=== PATIENT | male | born 1945 | race Caucasian/White ===

== ENCOUNTER 2019-11-26 15:26 | Inpatient (IN) | payer MEDICAID ==
[~2019-11-26] VITALS: Ht 185.4 cm; Wt 61.2 kg
[2019-11-26] MEDS ORDERED: TRAMADOL HCL50 MG ORAL (15:29)
[2019-11-26] MEDS ORDERED: COMBIVENT RESPIM4 GM IH (15:29)
[2019-11-26 15:30] VITALS: BP 156/99
--- NOTE | 2019-11-26 15:30 | NUR ---
ED Nurse Note: Patient TINO RA61 from home c/o SOB since last night and getting worse today. Per EMS Albuterol HHN was given en route. Alert and oriented x4, verbally responsive, ambulatory. Denies fever/ cough. Pt has hx of COPD and is a regular smoker. Droplet isolation observed. Pt placed on internal medicine nurse practitioner. ERMD at bedside.
--- NOTE | 2019-11-26 15:33 | NUR ---
ED Nurse Note: Blood specimen and Covid swab obtained and sent to lab. IV line was inserted prior to arrival.
[2019-11-26] MEDS ORDERED: Solu-MEDROL 125mg Inj IVP ONE (15:45)
--- NOTE | 2019-11-26 16:01 | Diagnostic Imaging Report ---
Indication: Chest pain Technique: One view of the chest Comparison: none Findings: The lungs are hyperinflated. Lungs and pleural spaces are clear. Old healed right rib fractures are noted. The heart size is normal. Bilateral presumed nipple shadows are noted Impression: Hyperinflation consistent with COPD No acute process
[2019-11-26 16:26] LABS: BASOPHILS % (AUTO) 1.5 % (0.0-2.0); EOSINOPHILS % (AUTO) 4.5 % (0.0-3.0); HEMATOCRIT 42.4 % (42.0-52.0); HEMOGLOBIN 13.8 G/DL (14.2-18.0); LYMPHOCYTES % (AUTO) 17.5 % (20.0-45.0); MEAN CORPUSCULAR VOLUME 101 FL (80-99); MONOCYTES % (AUTO) 5.6 % (1.0-10.0); NEUTROPHILS % (AUTO) 70.8 % (45.0-75.0); PLATELET COUNT 261 K/UL (150-450); RED BLOOD COUNT 4.21 M/UL (4.70-6.10); RED CELL DISTRIBUTION WIDTH 13.7 % (11.6-14.8)
[2019-11-26 16:37] LABS: ANION GAP 12 mmol/L (5-15); BLOOD UREA NITROGEN 13 mg/dL (7-18); CALCIUM 8.9 MG/DL (8.5-10.1); CARBON DIOXIDE 28 MMOL/L (21-32); CHLORIDE 105 MMOL/L (98-107); CREATININE 0.8 MG/DL (0.55-1.30); POTASSIUM 4.6 MMOL/L (3.5-5.1); SODIUM 145 MMOL/L (136-145)
[2019-11-26 16:52] LABS: ALANINE AMINOTRANSFERASE 26 U/L (12-78); ALBUMIN 3.3 G/DL (3.4-5.0); ALBUMIN/GLOBULIN RATIO 0.9 (1.0-2.7); ALKALINE PHOSPHATASE 65 U/L (46-116); ASPARTATE AMINO TRANSFERASE 24 U/L (15-37); BILIRUBIN,TOTAL 0.4 MG/DL (0.2-1.0); CKMB 4.7 NG/ML (0.0-3.6); CREATINE KINASE 99 U/L (26-308)
[2019-11-26 17:00] VITALS: BP 122/78
[2019-11-26] MEDS ORDERED: Albuterol 90mcg Inhaler 8gm INH PRN (17:15)
[2019-11-26] MEDS ORDERED: Nitroglycerin Subl 0.4mg tab SL PRN (17:30)
[2019-11-26] MEDS ORDERED: Miralax 17gm pkt ORAL PRN (17:30)
[2019-11-26] MEDS ORDERED: Milk of Magnesia 30ml Ud ORAL PRN (17:30)
[2019-11-26] MEDS ORDERED: Morphine Sulfate 2mg/ml Inj(IV/IM USE ONLY) IVP PRN (17:30)
[2019-11-26] MEDS ORDERED: HydrALAZINE 10mg Tab ORAL PRN (17:30)
[2019-11-26] MEDS ORDERED: DiphenhydrAMINE 25mg Tab ORAL PRN (17:30)
--- NOTE | 2019-11-26 17:41 | NUR ---
ED Nurse Note: Lactic Reflex is collected and sent to lab.
[2019-11-26] MEDS ORDERED: Ipratropium Bromide Inhaler INH PRN (17:45)
[2019-11-26 19:00] VITALS: BP 126/59
--- NOTE | 2019-11-26 19:05 | Emergency Room Report ---
History of Present Illness General Chief Complaint: Dyspnea/Respdistress Source: Patient, EMS Present Illness HPI Patient presents with complaints of shortness of breath Complains of cough reports that he has a history of COPD And he does smoke intermittently and smoked recently Denies any recent contact with covid-19 patient Denies any recent travel denies any pleurisy Patient reports feeling better with breathing treatment in route from paramedics Allergies: Coded Allergies: No Known Allergies (Unverified , 11/26/19) COVID-19 Screening Contact w/high risk pt: No Recent Travel to affected area: No Experienced COVID-19 symptoms?: Yes COVID-19 symptoms experienced: Shortness of Breath Patient History Past Medical History: see triage record Reviewed Nursing Documentation: PMH: Agreed; PSxH: Agreed Nursing Documentation-PMH Past Medical History: No History, Except For Hx COPD: Yes Review of Systems All Other Systems: negative except mentioned in HPI Physical Exam Vital Signs Date Time Temp Pulse Resp B/P (MAP) Pulse Ox O2 Delivery O2 Flow Rate FiO2 11/26/19 15:20 98.4 100 24 156/99 (118) 100 Simple Mask 10.0 Sp02 EP Interpretation: reviewed, normal General Appearance: mild distress - Short of breath Head: normocephalic, atraumatic Eyes: bilateral eye PERRL, bilateral eye EOMI ENT: hearing grossly normal, normal pharynx, TMs + canals normal, uvula midline Neck: full range of motion, supple, no meningismus, no bony tend Respiratory: no respiratory distress, no retraction, no accessory muscle use, wheezing - Bilaterally Cardiovascular #1: normal peripheral pulses, regular rate, rhythm, no edema, no gallop, no JVD, no murmur Gastrointestinal: normal bowel sounds, non tender, soft, no mass, no organomegaly, non-distended, no guarding, no hernia, no pulsatile mass, no rebound Genitourinary: no CVA tenderness Musculoskeletal: normal inspection Neurologic: motor strength/tone normal, [employer] III-XII nml as tested, oriented x3 , sensory intact, responsive Psychiatric: mood/affect normal Skin: no rash Lymphatic: normal inspection, no adenopathy Medical Decision Making Diagnostic Impression: Primary Impression: COPD exacerbation Additional Impressions: Dyspnea URI (upper respiratory infection) ER Course Patient is a fairly complex patient with multiple differential to consideration including but not limited to cardiac cardiopulmonary and vascular emergencies Consideration for COPD exacerbation versus covid-19 infection also entertained Patient x-ray shows COPD findings he did receive MDI inhaler in the emergency room Including steroids and magnesium he continues to do better ABG does show some exacerbation of COPD And patient admitted for further evaluation of covid-19 and inpatient care Labs Test 11/26/19 15:35 11/26/19 15:38 11/26/19 17:40 White Blood Count 11.0 K/UL (4.8-10.8) Red Blood Count 4.21 M/UL (4.70-6.10) Hemoglobin 13.8 G/DL (14.2-18.0) Hematocrit 42.4 % (42.0-52.0) Mean Corpuscular Volume 101 FL (80-99) Mean Corpuscular Hemoglobin 32.6 PG (27.0-31.0) Mean Corpuscular Hemoglobin Concent 32.4 G/DL (32.0-36.0) Red Cell Distribution Width 13.7 % (11.6-14.8) Platelet Count 261 K/UL (150-450) Mean Platelet Volume 10.8 FL (6.5-10.1) Neutrophils (%) (Auto) 70.8 % (45.0-75.0) Lymphocytes (%) (Auto) 17.5 % (20.0-45.0) Monocytes (%) (Auto) 5.6 % (1.0-10.0) Eosinophils (%) (Auto) 4.5 % (0.0-3.0) Basophils (%) (Auto) 1.5 % (0.0-2.0) Sodium Level 145 MMOL/L (136-145) Potassium Level 4.6 MMOL/L (3.5-5.1) Chloride Level 105 MMOL/L (98-107) Carbon Dioxide Level 28 MMOL/L (21-32) Anion Gap 12 mmol/L (5-15) Blood Urea Nitrogen 13 mg/dL (7-18) Creatinine 0.8 MG/DL (0.55-1.30) Estimat Glomerular Filtration Rate > 60 mL/min (>60) Glucose Level 115 MG/DL (74-106) Lactic Acid Level 2.30 mmol/L (0.4-2.0) 2.10 mmol/L (0.66-2.22) Calcium Level 8.9 MG/DL (8.5-10.1) Total Bilirubin 0.4 MG/DL (0.2-1.0) Aspartate Amino Transf (AST/SGOT) 24 U/L (15-37) Alanine Aminotransferase (ALT/SGPT) 26 U/L (12-78) Alkaline Phosphatase 65 U/L (46-116) Total Creatine Kinase 99 U/L (26-308) Creatine Kinase MB 4.7 NG/ML (0.0-3.6) Creatine Kinase MB Relative Index 4.7 Troponin I 0.000 ng/mL (0.000-0.056) Pro-B-Type Natriuretic Peptide 414 pg/mL (0-125) Total Protein 7.1 G/DL (6.4-8.2) Albumin 3.3 G/DL (3.4-5.0) Globulin 3.8 g/dL Albumin/Globulin Ratio 0.9 (1.0-2.7) Lipase 129 U/L (73-393) Arterial Blood pH 7.330 (7.350-7.450) Arterial Blood Partial Pressure CO2 51.4 mmHg (35.0-45.0) Arterial Blood Partial Pressure O2 65.6 mmHg (75.0-100.0) Arterial Blood HCO3 26.5 mmol/L (22.0-26.0) Arterial Blood Oxygen Saturation 92.1 % (95-100) Arterial Blood Base Excess -0.3 (-2-2) Alejandro Test Positive Rhythm Strip Diag. Results EP Interpretation: yes Rate: 78 Rhythm: NSR, no PVC's, no ectopy Chest X-Ray Diagnostic Results Chest X-Ray Diagnostic Results : Chest X-Ray Ordered: Yes # of Views/Limited/Complete: 1 View Indication: Shortness of Breath EP Interpretation: Yes Interpretation: no consolidation, no effusion, no pneumothorax Impression: No acute disease - Hypoinflation consistent with COPD Electronically Signed by: Carole Blanchard DO Last Vital Signs Date Time Temp Pulse Resp B/P (MAP) Pulse Ox O2 Delivery O2 Flow Rate FiO2 11/26/19 17:00 98.4 89 21 122/78 99 Nasal Cannula 2.0 Status: improved Disposition: ADMITTED INPATIENT Condition: Serious Referrals: NOT CHOSEN IPA/,REFERRING (PCP) Carole Blanchard DO Nov 26, 2019 19:05
--- NOTE | 2019-11-26 19:07 | NUR ---
HAND-OFF: Report given to Christopher BLOOM. Endorsed plan of care.
--- NOTE | 2019-11-26 19:15 | NUR ---
ED Nurse Note: received report from Phuc BLOOM. will resume care of patient
--- NOTE | 2019-11-26 20:34 | NUR ---
ED Nurse Note: gave report to aMx BLOOM for 212-2
[2019-11-26 20:35] VITALS: BP 131/66
[2019-11-26] MEDS: Docusate 100mg cap ORAL SCH (21:00)
[2019-11-26] MEDS: Enoxaparin 40mg Inj SUBQ SCH (21:00)
--- NOTE | 2019-11-26 21:00 | NUR ---
TRANSFER TO FLOOR: Patient transferred to [facility] via [facility] in stable condition via transport 19 protocol as ordered, per dr. Lucio. Report given to Jenni BLOOM. Belongings sent with patient.
[2019-11-26 21:15] VITALS: BP 161/69
--- NOTE | 2019-11-26 21:15 | NUR ---
NURSE NOTES: Pt received from Willie, RN alert and oriented x4 with no acute s/s of distress noted. On 2L NC, saturating at 97%. IV site asymptomatic and patent on L hand 20g, saline lock. Skin intact. Belongings with patient upon admission. VS stable, sinus tachycardia on monitor. Pt unable to remember home medications. Bed in lowest position, call light and belongings within reach.
[2019-11-26] MEDS: Ipratropium Bromide Inhaler INH SCH (21:51)
--- NOTE | 2019-11-26 23:28 | Infectious Diseases Prog Note ---
Assessment/Plan Assessment/Plan Full consult to follow: rule out covid19 infection copd rocephin steroids f/u chest x-ray await covid19 testing isolation Subjective Allergies: Coded Allergies: No Known Allergies (Unverified , 11/26/19) Objective Vital Signs Last 24 Hour Vital Signs Date Time Temp Pulse Resp B/P (MAP) Pulse Ox O2 Delivery O2 Flow Rate FiO2 11/26/19 21:46 Nasal Cannula 2.0 11/26/19 21:15 98.1 112 19 161/69 (99) 97 11/26/19 21:00 98.6 77 18 131/66 99 Nasal Cannula 2.0 80 11/26/19 20:35 98.6 80 18 131/66 99 Nasal Cannula 2.0 11/26/19 20:00 113 11/26/19 19:00 98.4 77 18 126/59 99 Nasal Cannula 2.0 11/26/19 17:00 98.4 89 21 122/78 99 Nasal Cannula 2.0 11/26/19 15:30 98.4 100 24 156/99 100 Nasal Cannula 2.0 11/26/19 15:30 100 24 Simple Mask 10.0 11/26/19 15:20 98.4 100 24 156/99 (118) 100 Simple Mask 10.0 Height (Feet): 6 Height (Inches): 1.00 Weight (Pounds): 130 Laboratory Tests Test 11/26/19 15:35 11/26/19 15:38 11/26/19 17:40 White Blood Count 11.0 K/UL (4.8-10.8) H Red Blood Count 4.21 M/UL (4.70-6.10) L Hemoglobin 13.8 G/DL (14.2-18.0) L Hematocrit 42.4 % (42.0-52.0) Mean Corpuscular Volume 101 FL (80-99) H Mean Corpuscular Hemoglobin 32.6 PG (27.0-31.0) H Mean Corpuscular Hemoglobin Concent 32.4 G/DL (32.0-36.0) Red Cell Distribution Width 13.7 % (11.6-14.8) Platelet Count 261 K/UL (150-450) Mean Platelet Volume 10.8 FL (6.5-10.1) H Neutrophils (%) (Auto) 70.8 % (45.0-75.0) Lymphocytes (%) (Auto) 17.5 % (20.0-45.0) L Monocytes (%) (Auto) 5.6 % (1.0-10.0) Eosinophils (%) (Auto) 4.5 % (0.0-3.0) H Basophils (%) (Auto) 1.5 % (0.0-2.0) Sodium Level 145 MMOL/L (136-145) Potassium Level 4.6 MMOL/L (3.5-5.1) Chloride Level 105 MMOL/L (98-107) Carbon Dioxide Level 28 MMOL/L (21-32) Anion Gap 12 mmol/L (5-15) Blood Urea Nitrogen 13 mg/dL (7-18) Creatinine 0.8 MG/DL (0.55-1.30) Estimat Glomerular Filtration Rate > 60 mL/min (>60) Glucose Level 115 MG/DL (74-106) H Lactic Acid Level 2.30 mmol/L (0.4-2.0) H 2.10 mmol/L (0.66-2.22) Calcium Level 8.9 MG/DL (8.5-10.1) Total Bilirubin 0.4 MG/DL (0.2-1.0) Aspartate Amino Transf (AST/SGOT) 24 U/L (15-37) Alanine Aminotransferase (ALT/SGPT) 26 U/L (12-78) Alkaline Phosphatase 65 U/L (46-116) Total Creatine Kinase 99 U/L (26-308) Creatine Kinase MB 4.7 NG/ML (0.0-3.6) H Creatine Kinase MB Relative Index 4.7 Troponin I 0.000 ng/mL (0.000-0.056) Pro-B-Type Natriuretic Peptide 414 pg/mL (0-125) H Total Protein 7.1 G/DL (6.4-8.2) Albumin 3.3 G/DL (3.4-5.0) L Globulin 3.8 g/dL Albumin/Globulin Ratio 0.9 (1.0-2.7) L Lipase 129 U/L (73-393) Arterial Blood pH 7.330 (7.350-7.450) Arterial Blood Partial Pressure CO2 51.4 mmHg (35.0-45.0) H Arterial Blood Partial Pressure O2 65.6 mmHg (75.0-100.0) L Arterial Blood HCO3 26.5 mmol/L (22.0-26.0) H Arterial Blood Oxygen Saturation 92.1 % (95-100) L Arterial Blood Base Excess -0.3 (-2-2) Alejandro Test Positive Current Medications Medications (Trade) Dose Ordered Sig/Duran Route PRN Reason Start Time Stop Time Status Last Admin Dose Admin Acetaminophen (Tylenol) 650 mg Q4H PRN ORAL Mild Pain (Pain Scale 1-3) 11/26/19 17:30 12/26/19 17:29 Acetaminophen (Tylenol) 650 mg Q4H PRN ORAL Temp >100.5 11/26/19 17:30 12/26/19 17:29 Albuterol Sulfate (Proventil MDI) 2 puff Q4H PRN INH Shortness of Breath 11/26/19 17:15 02/24/20 17:14 Bisacodyl (Dulcolax) 10 mg DAILYPRN PRN RECTAL Constipation 11/26/19 17:30 02/24/20 17:29 Dextrose (Dextrose 50%) 25 ml Q30M PRN IV Hypoglycemia 11/26/19 17:30 02/24/20 17:29 Dextrose (Dextrose 50%) 50 ml Q30M PRN IV Hypoglycemia 11/26/19 17:30 02/24/20 17:29 Diphenhydramine HCl (Benadryl) 25 mg Q6H PRN ORAL Itching/Pruritis 11/26/19 17:30 12/26/19 17:29 Docusate Sodium (Colace) 100 mg EVERY 12 HOURS ORAL 11/26/19 21:00 12/26/19 20:59 Enoxaparin Sodium (Lovenox) 40 mg Q24H SUBQ 11/26/19 21:00 02/24/20 20:59 Hydralazine HCl (Apresoline) 10 mg Q6H PRN ORAL sbp>160 11/26/19 17:30 02/24/20 17:29 Ipratropium [place] (Atrovent Inh) 1 puffs Q12HR INH 11/26/19 21:00 12/26/19 20:59 11/26/19 21:51 Ipratropium [place] (Atrovent Inh) 1 puffs Q6H PRN INH sob 11/26/19 17:45 12/26/19 17:44 Magnesium Hydroxide (Mom) 30 ml HSPRN PRN ORAL Constipation 11/26/19 17:30 12/26/19 17:29 Morphine Sulfate (Morphine Sulfate) 1 mg Q6H PRN IVP Severe Pain (Pain Scale 7-10) 11/26/19 17:30 12/03/19 17:29 Nitroglycerin (Ntg) 0.4 mg Q5M PRN SL Prn Chest Pain 11/26/19 17:30 12/26/19 17:29 Polyethylene Glycol (Miralax) 17 gm DAILYPRN PRN ORAL Constipation 11/26/19 17:30 12/26/19 17:29 Cody Bennett MD Nov 26, 2019 23:28
[2019-11-27] VITALS: BP 130/60
[2019-11-27] MEDS: cefTRIAXone 1 GM in D5W 50 ML IVPB SCH ×2 (00:13→23:22)
[2019-11-27 04:00] VITALS: BP 122/78
[2019-11-27 06:39] LABS: BASOPHILS % (AUTO) 0.5 % (0.0-2.0); EOSINOPHILS % (AUTO) 0.1 % (0.0-3.0); HEMATOCRIT 39.4 % (42.0-52.0); HEMOGLOBIN 13.1 G/DL (14.2-18.0); LYMPHOCYTES % (AUTO) 15.3 % (20.0-45.0); MEAN CORPUSCULAR VOLUME 95 FL (80-99); MONOCYTES % (AUTO) 3.7 % (1.0-10.0); NEUTROPHILS % (AUTO) 80.5 % (45.0-75.0); PLATELET COUNT 261 K/UL (150-450); RED BLOOD COUNT 4.16 M/UL (4.70-6.10); RED CELL DISTRIBUTION WIDTH 12.7 % (11.6-14.8); WHITE BLOOD COUNT 6.6 K/UL (4.8-10.8)
--- NOTE | 2019-11-27 07:20 | NUR ---
HAND-OFF: Report given to MERLE Smith.
--- NOTE | 2019-11-27 07:21 | NUR ---
NURSE NOTES: Received patient in bed awake. O2 via NC in place, no SOB or acute distress. IV line intact. HOB elevated. Bed locked in lowest position. Call light within reach. Will continue plan of care.
[2019-11-27 07:25] LABS: ANION GAP 7 mmol/L (5-15); BLOOD UREA NITROGEN 19 mg/dL (7-18); CALCIUM 8.4 MG/DL (8.5-10.1); CARBON DIOXIDE 31 MMOL/L (21-32); CHLORIDE 106 MMOL/L (98-107); CREATININE 0.9 MG/DL (0.55-1.30); POTASSIUM 4.5 MMOL/L (3.5-5.1); SODIUM 144 MMOL/L (136-145)
[2019-11-27 08:00] VITALS: BP 116/64
--- NOTE | 2019-11-27 08:13 | History and Physical ---
History of Present Illness General Reason for Hospitalization: Dyspnea/Respdistress Present Illness HPI 74-year-old male with PMH of COPD who presents with shortness of breath for 7 days. Patient states he was in his usual state of health when he slowly began to note increased S OB. Patient denies any CP, worsening S OB with ambulation. Patient notes usually supplemental O2 will relieve his symptoms or his inhaler. Patient states he on day of arrival he used his inhaler with O2 with no improvement. Patient notes he took cough syrup with produced mucus/white phlegm. Patient denies any F/C, recent contact with positive COVID patients. Patient states he lives at home on his own. Patient denies any MERA, vision changes, CP, N/V, F/C, abdominal pain, dysuria, diarrhea/constipation. In the ED, patient was shown to be in acute respiratory distress, was given magnesium, CXR consistent with COPD. Pt was admitted for further treatment and evaluation. PMH: COPD FH: Reviewed and not pertinent Surgeries: None SH: Current smoker, 4 to 5 cigarettes daily for "several years", denies daily EtOH, lives at home alone Allergies: NKDA Meds: Inhaler Allergies: Coded Allergies: No Known Allergies (Unverified , 11/26/19) Medication History Scheduled PRN Tramadol Hcl* (Ultram*), 50 MG ORAL Q6H PRN for For Pain, (Reported) Miscellaneous Medications Ipratropium/Albuterol Sulfate (Combivent Respimat Inhal [place]), 4 GM IH, ( Reported) Patient History Healthcare decision maker N Resuscitation status Full Code Advanced Directive on File Review of Systems Constitutional: Denies: no symptoms, see HPI, chills, sweats, fever, malaise, weakness, other Eye: Denies: no symptoms, see HPI, eye pain, blurred vision, tearing, double vision, nose pain, nose congestion, acuity changes, discharge, other ENT: Denies: no symptoms, see HPI, ear pain, ear discharge, nose pain, nose congestion, throat pain, throat swelling, mouth pain, hearing loss, nasal discharge, other Cardiovascular: Denies: no symptoms, see HPI, chest pain, edema, palpitations, syncope, PND, other Gastrointestinal: Denies: no symptoms, see HPI, abdominal pain, constipation, diarrhea, nausea, vomiting, melena, hematemesis, other Genitourinary: Denies: no symptoms, see HPI, discharge, dysuria, frequency, hematuria, pain, retention, incontinence, urgency, vag bleed/dc, other Musculoskeletal: Denies: no symptoms, see HPI, back pain, gout, joint pain, joint swelling, muscle pain, muscle stiffness, other Skin: Denies: no symptoms, see HPI, rash, change in color, change in hair/nails , dryness, lesions, other Psychiatric: Denies: no symptoms, see HPI, prior hx, anxiety, depressed feelings, emotional problems, SI, HI, hallucinations, other Neurological: Denies: no symptoms, see HPI, headache, numbness, paresthesia, seizure, tingling, tremors, focal weakness, syncope, dizziness, other Endocrine: Denies: no symptoms, see HPI, excessive sweating, flushing, intolerance to temperature, increased thirst, increased urine, unexplained weight loss, other Physical Exam Physical Exam Narrative General: NAD, A&O x 3 HEENT: NCAT, EOMi, MMM CV: RRR, no murmurs, rubs, or gallops Pulm: mild wheezing in left lung davis otherwise good air movement in lungs bilaterally, no accessory muscle usage or conversational dyspnea GI: Soft, nontender, nondistended, bowel sounds present Ext: No lower extremity edema bilaterally Skin: no rashes lesions or ulcers Msk: Joints symmetrical in upper extremity and lower extremity bilaterally, no joint swelling. Neuro: CN 2-12 grossly intact bilaterally, no focal signs. Last 24 Hour Vital Signs Date Time Temp Pulse Resp B/P (MAP) Pulse Ox O2 Delivery O2 Flow Rate FiO2 11/27/19 04:00 98.1 86 16 122/78 (93) 99 11/27/19 04:00 2.0 11/27/19 04:00 81 11/27/19 00:00 97.0 85 16 130/60 (83) 100 11/27/19 00:00 84 11/27/19 00:00 2.0 11/26/19 21:46 Nasal Cannula 2.0 11/26/19 21:15 98.1 112 19 161/69 (99) 97 11/26/19 21:00 98.6 77 18 131/66 99 Nasal Cannula 2.0 80 11/26/19 20:35 98.6 80 18 131/66 99 Nasal Cannula 2.0 11/26/19 20:00 113 11/26/19 19:00 98.4 77 18 126/59 99 Nasal Cannula 2.0 11/26/19 17:00 98.4 89 21 122/78 99 Nasal Cannula 2.0 11/26/19 15:30 98.4 100 24 156/99 100 Nasal Cannula 2.0 11/26/19 15:30 100 24 Simple Mask 10.0 11/26/19 15:20 98.4 100 24 156/99 (118) 100 Simple Mask 10.0 Intake and Output 11/26/19 11/27/19 19:00 07:00 Intake Total 1200 ml 1250 ml Output Total 600 ml Balance 1200 ml 650 ml Intake Oral 250 ml IV Total 1200 ml 1000 ml Output Urine Total 600 ml Laboratory Tests Test 11/26/19 15:35 11/26/19 15:38 11/26/19 17:40 11/27/19 05:00 White Blood Count 11.0 K/UL (4.8-10.8) H 6.6 K/UL (4.8-10.8) Red Blood Count 4.21 M/UL (4.70-6.10) L 4.16 M/UL (4.70-6.10) L Hemoglobin 13.8 G/DL (14.2-18.0) L 13.1 G/DL (14.2-18.0) L Hematocrit 42.4 % (42.0-52.0) 39.4 % (42.0-52.0) L Mean Corpuscular Volume 101 FL (80-99) H 95 FL (80-99) Mean Corpuscular Hemoglobin 32.6 PG (27.0-31.0) H 31.5 PG (27.0-31.0) H Mean Corpuscular Hemoglobin Concent 32.4 G/DL (32.0-36.0) 33.3 G/DL (32.0-36.0) Red Cell Distribution Width 13.7 % (11.6-14.8) 12.7 % (11.6-14.8) Platelet Count 261 K/UL (150-450) 261 K/UL (150-450) Mean Platelet Volume 10.8 FL (6.5-10.1) H 9.3 FL (6.5-10.1) Neutrophils (%) (Auto) 70.8 % (45.0-75.0) 80.5 % (45.0-75.0) H Lymphocytes (%) (Auto) 17.5 % (20.0-45.0) L 15.3 % (20.0-45.0) L Monocytes (%) (Auto) 5.6 % (1.0-10.0) 3.7 % (1.0-10.0) Eosinophils (%) (Auto) 4.5 % (0.0-3.0) H 0.1 % (0.0-3.0) Basophils (%) (Auto) 1.5 % (0.0-2.0) 0.5 % (0.0-2.0) Sodium Level 145 MMOL/L (136-145) 144 MMOL/L (136-145) Potassium Level 4.6 MMOL/L (3.5-5.1) 4.5 MMOL/L (3.5-5.1) Chloride Level 105 MMOL/L (98-107) 106 MMOL/L (98-107) Carbon Dioxide Level 28 MMOL/L (21-32) 31 MMOL/L (21-32) Anion Gap 12 mmol/L (5-15) 7 mmol/L (5-15) Blood Urea Nitrogen 13 mg/dL (7-18) 19 mg/dL (7-18) H Creatinine 0.8 MG/DL (0.55-1.30) 0.9 MG/DL (0.55-1.30) Estimat Glomerular Filtration Rate > 60 mL/min (>60) > 60 mL/min (>60) Glucose Level 115 MG/DL (74-106) H 152 MG/DL (74-106) H Lactic Acid Level 2.30 mmol/L (0.4-2.0) H 2.10 mmol/L (0.66-2.22) Calcium Level 8.9 MG/DL (8.5-10.1) 8.4 MG/DL (8.5-10.1) L Total Bilirubin 0.4 MG/DL (0.2-1.0) Aspartate Amino Transf (AST/SGOT) 24 U/L (15-37) Alanine Aminotransferase (ALT/SGPT) 26 U/L (12-78) Alkaline Phosphatase 65 U/L (46-116) Total Creatine Kinase 99 U/L (26-308) Creatine Kinase MB 4.7 NG/ML (0.0-3.6) H Creatine Kinase MB Relative Index 4.7 Troponin I 0.000 ng/mL (0.000-0.056) Pro-B-Type Natriuretic Peptide 414 pg/mL (0-125) H Total Protein 7.1 G/DL (6.4-8.2) Albumin 3.3 G/DL (3.4-5.0) L Globulin 3.8 g/dL Albumin/Globulin Ratio 0.9 (1.0-2.7) L Lipase 129 U/L (73-393) Arterial Blood pH 7.330 (7.350-7.450) Arterial Blood Partial Pressure CO2 51.4 mmHg (35.0-45.0) H Arterial Blood Partial Pressure O2 65.6 mmHg (75.0-100.0) L Arterial Blood HCO3 26.5 mmol/L (22.0-26.0) H Arterial Blood Oxygen Saturation 92.1 % (95-100) L Arterial Blood Base Excess -0.3 (-2-2) Alejandro Test Positive Medications Current Medications Medications (Trade) Dose Ordered Sig/Duran Route PRN Reason Start Time Stop Time Status Last Admin Dose Admin Acetaminophen (Tylenol) 650 mg Q4H PRN ORAL Mild Pain (Pain Scale 1-3) 11/26/19 17:30 12/26/19 17:29 Acetaminophen (Tylenol) 650 mg Q4H PRN ORAL Temp >100.5 11/26/19 17:30 12/26/19 17:29 Albuterol Sulfate (Proventil MDI) 2 puff Q4H PRN INH Shortness of Breath 11/26/19 17:15 02/24/20 17:14 Bisacodyl (Dulcolax) 10 mg DAILYPRN PRN RECTAL Constipation 11/26/19 17:30 02/24/20 17:29 Ceftriaxone Sodium 1 gm/ Dextrose 50 ml @ 100 mls/hr Q24H IVPB 11/27/19 00:00 12/04/19 00:00 11/27/19 00:13 Dextrose (Dextrose 50%) 25 ml Q30M PRN IV Hypoglycemia 11/26/19 17:30 02/24/20 17:29 Dextrose (Dextrose 50%) 50 ml Q30M PRN IV Hypoglycemia 11/26/19 17:30 02/24/20 17:29 Diphenhydramine HCl (Benadryl) 25 mg Q6H PRN ORAL Itching/Pruritis 11/26/19 17:30 12/26/19 17:29 Docusate Sodium (Colace) 100 mg EVERY 12 HOURS ORAL 11/26/19 21:00 12/26/19 20:59 Enoxaparin Sodium (Lovenox) 40 mg Q24H SUBQ 11/26/19 21:00 02/24/20 20:59 Hydralazine HCl (Apresoline) 10 mg Q6H PRN ORAL sbp>160 11/26/19 17:30 02/24/20 17:29 Ipratropium [place] (Atrovent Inh) 1 puffs Q12HR INH 11/26/19 21:00 12/26/19 20:59 11/26/19 21:51 Ipratropium [place] (Atrovent Inh) 1 puffs Q6H PRN INH sob 11/26/19 17:45 12/26/19 17:44 Magnesium Hydroxide (Mom) 30 ml HSPRN PRN ORAL Constipation 11/26/19 17:30 12/26/19 17:29 Morphine Sulfate (Morphine Sulfate) 1 mg Q6H PRN IVP Severe Pain (Pain Scale 7-10) 11/26/19 17:30 12/03/19 17:29 Nitroglycerin (Ntg) 0.4 mg Q5M PRN SL Prn Chest Pain 11/26/19 17:30 12/26/19 17:29 Polyethylene Glycol (Miralax) 17 gm DAILYPRN PRN ORAL Constipation 11/26/19 17:30 12/26/19 17:29 Assessment/Plan Assessment/Plan: 74-year-old male with PMH of COPD who presents with shortness of breath for 7 days. In the ED, patient was shown to be in acute respiratory distress, was given magnesium, CXR consistent with COPD. Pt was admitted for further treatment and evaluation. #Acute COPD exacerbation #CAP #Suspect COVID #Lactic acidosis - resolved -admit to tele -COVID isolation/droplet precautions -lactic acidosis likely 2/2 to acute exacerbation of COPD, now resolved -CXR consistent w/COPD -trop 0 x2 -Atrovent scheduled and PRN -steroids -f/u BCx, SCx -f/u COVID PCR -ID consulted, CTX -Pulm consulted, recs appreciated DVT PPX: lovenox Time spent on encounter: 72 mins, >50% on counseling, coordination of care. Discussed case w/ER physician, Pulm, ID, RN. Time of note doesn't reflect time of encounter. Hodan Garcia M.D. Nov 27, 2019 08:13
[2019-11-27] MEDS: Solu-MEDROL 40mg Inj IVP SCH ×2 (08:56→16:41)
[2019-11-27] MEDS: Docusate 100mg cap ORAL SCH ×2 (08:56→23:21)
[2019-11-27] MEDS: Ipratropium Bromide Inhaler INH SCH ×2 (08:57→21:00)
--- NOTE | 2019-11-27 10:57 | NUR ---
RD ASSESSMENT & RECOMMENDATIONS SEE CARE ACTIVITY FOR COMPLETE ASSESSMENT DAILY ESTIMATED NEEDS: Needs based on COPD, underweight/ 59kg 30-35 kcals/kg 1318-5720 total kcals 1-1.5 g protein/kg 59-89 g total protein 25-30 mL/kg 7347-3743 total fluid mLs NUTRITION DIAGNOSIS: Increased kcal/prot intake needs R/T underweight status as evidenced by 71% IBW and low BMI of 17.2 per EMR. CURRENT DIET:REGULAR PO DIET RECOMMENDATIONS: REGULAR diet as tolerated ADDITIONAL RECOMMENDATIONS: * Standing wt for accurate CBW. * Monitor BGs closely on Solumedrol * Monitor for continued good PO intake
[2019-11-27 11:38] VITALS: BP 123/69
--- NOTE | 2019-11-27 12:00 | NUR ---
NURSE NOTES: Patient positive for gram variable rods as per Dang or lab, Dr Norris paged, awaiting callback.
[2019-11-27 16:00] VITALS: BP 145/75
--- NOTE | 2019-11-27 16:06 | NUR ---
CASE MANAGEMENT:REVIEW 74 YR OLD MALE BIBA FROM HOME CC: SOB SI: COPD EXACERBATION. URI 98.4 100 24 156/99 100% ON MASK @10L WBC+11.0 ph-7.33 pco2+51.4 po2-65.6 hco3+26.5 IS: HHN EN ROUTE 1L NS BOLUS IV SOLUMEDROL IV MAG SULFATE CHEST XRAY COVID 19 BLOOD CX : TO TELEMETRY
--- NOTE | 2019-11-27 16:30 | Consultation ---
DATE OF CONSULTATION: 11/27/2019 PULMONARY CONSULTATION CONSULTING PHYSICIAN: Ihsan Lala MD. HISTORY OF PRESENT ILLNESS: This is a 74-year-old male, who was admitted to the hospital with exacerbation of COPD. The patient presented to the emergency room yesterday with complaints of shortness of breath. He is an active smoker. He denied any contact with COVID-19 patients. There is no history of travel. He reported a mild dry cough, but no fevers. The patient was seen and evaluated, admitted to the hospital for subsequent management and care. His initial x-ray of the chest that was obtained in the emergency room has shown completely clear lung davis bilaterally with some crowding of the vessels at both lung bases. There is also marked hyperinflation. There is no parenchymal infiltrate. The patient's initial vital signs also showed borderline low oxygen and he is saturating well on low-flow oxygen. PAST MEDICAL HISTORY: COPD, otherwise no history noted. PAST SURGICAL HISTORY: None. HOME MEDICATIONS: Reviewed and reconciled in chart. REVIEW OF SYSTEMS: Denies any headaches, hematemesis, melena, hematochezia, night sweats, or weight loss. PHYSICAL EXAMINATION: VITAL SIGNS: Most recent vital signs show O2 saturation 96% on 3 L of oxygen, heart rate is 84, respirations are 20, blood pressure 116/60. He is afebrile. GENERAL: Reveals a 74-year-old male. HEENT: Unremarkable. CHEST: Shows diminished breath sounds bilaterally with normal heart sounds. ABDOMEN: Soft. EXTREMITIES: There is no edema. NEUROLOGIC: Nonfocal. LABORATORY DATA: Lab testing shows white count 6.6, hemoglobin 13, otherwise normal CBC and BMP. Troponin negative x2. ABG 7.33, pCO2 51, pO2 65. IMPRESSION: Exacerbation of COPD. DISCUSSION: Admit to the hospital. Agree with the use of oxygen and pulmonary hygiene including breathing treatments. The patient has received steroids and 40 mg IV q.8h. We will follow carefully. Antibiotics per ID. Ihsan Lala M.D. DR: SARAH/SUGEY JOB#: [id number] CC:
--- NOTE | 2019-11-27 17:39 | NUR ---
NURSE NOTES: Called Dr Norris, still awaiting callback for RN to relay microbiology test result.
--- NOTE | 2019-11-27 17:45 | NUR ---
NURSE NOTES: Relayed fram variable rods in blood (one bottle) to Dr Bennett, no new orders. Addendum: 11/27/19 at 1859 by Sarah Duque RN gram*
--- NOTE | 2019-11-27 19:40 | NUR ---
HAND-OFF: Report given to Alma BLOOM. Addendum: 11/27/19 at 1 by Sarah Duque RN HAND-OFF: Report given to Ema BLOOM.
--- NOTE | 2019-11-27 19:45 | NUR ---
NURSE NOTES: Received report from Sarah Higuera RN. Pt in stable condition; will continue monitoring and plan of care.
[2019-11-27 20:00] VITALS: BP 149/78
--- NOTE | 2019-11-27 22:35 | Infectious Diseases Prog Note ---
Assessment/Plan Assessment/Plan Full consult dictated rule out covid19 infection ? cap, uri copd rocephin steroids f/u chest x-ray await covid19 testing isolation blood culture with gram variable rods - likely contaminant - recheck blood cultures will f/u Subjective Constitutional: Denies: fever HEENT: Denies: congestion Respiratory: Denies: shortness of breath Cardiovascular: Denies: chest pain Gastrointestinal/Abdominal: Denies: nausea, vomiting Allergies: Coded Allergies: No Known Allergies (Unverified , 11/26/19) Objective Vital Signs Last 24 Hour Vital Signs Date Time Temp Pulse Resp B/P (MAP) Pulse Ox O2 Delivery O2 Flow Rate FiO2 11/27/19 16:00 98.1 80 20 145/75 (98) 98 11/27/19 16:00 2.0 11/27/19 16:00 89 11/27/19 12:00 92 11/27/19 12:00 2.0 11/27/19 11:38 97.9 75 20 123/69 (87) 100 11/27/19 09:00 Nasal Cannula 2.0 11/27/19 08:00 2.0 11/27/19 08:00 86 11/27/19 08:00 98.1 87 20 116/64 (81) 99 11/27/19 04:00 98.1 86 16 122/78 (93) 99 11/27/19 04:00 2.0 11/27/19 04:00 81 11/27/19 00:00 97.0 85 16 130/60 (83) 100 11/27/19 00:00 84 11/27/19 00:00 2.0 Height (Feet): 6 Height (Inches): 1.00 Weight (Pounds): 130 General Appearance: no acute distress HEENT: normocephalic, atraumatic, anicteric Respiratory/Chest: lungs clear, normal breath sounds Cardiovascular: normal rate, regular rhythm Abdomen: normal bowel sounds, soft, non tender, no organomegaly Microbiology Date/Time Source Procedure Growth Status 11/26/19 15:35 Blood Blood Culture - Preliminary Resulted Laboratory Tests Test 11/27/19 05:00 White Blood Count 6.6 K/UL (4.8-10.8) Red Blood Count 4.16 M/UL (4.70-6.10) L Hemoglobin 13.1 G/DL (14.2-18.0) L Hematocrit 39.4 % (42.0-52.0) L Mean Corpuscular Volume 95 FL (80-99) Mean Corpuscular Hemoglobin 31.5 PG (27.0-31.0) H Mean Corpuscular Hemoglobin Concent 33.3 G/DL (32.0-36.0) Red Cell Distribution Width 12.7 % (11.6-14.8) Platelet Count 261 K/UL (150-450) Mean Platelet Volume 9.3 FL (6.5-10.1) Neutrophils (%) (Auto) 80.5 % (45.0-75.0) H Lymphocytes (%) (Auto) 15.3 % (20.0-45.0) L Monocytes (%) (Auto) 3.7 % (1.0-10.0) Eosinophils (%) (Auto) 0.1 % (0.0-3.0) Basophils (%) (Auto) 0.5 % (0.0-2.0) Sodium Level 144 MMOL/L (136-145) Potassium Level 4.5 MMOL/L (3.5-5.1) Chloride Level 106 MMOL/L (98-107) Carbon Dioxide Level 31 MMOL/L (21-32) Anion Gap 7 mmol/L (5-15) Blood Urea Nitrogen 19 mg/dL (7-18) H Creatinine 0.9 MG/DL (0.55-1.30) Estimat Glomerular Filtration Rate > 60 mL/min (>60) Glucose Level 152 MG/DL (74-106) H Calcium Level 8.4 MG/DL (8.5-10.1) L Troponin I 0.000 ng/mL (0.000-0.056) Current Medications Medications (Trade) Dose Ordered Sig/Duran Route PRN Reason Start Time Stop Time Status Last Admin Dose Admin Acetaminophen (Tylenol) 650 mg Q4H PRN ORAL Mild Pain (Pain Scale 1-3) 11/26/19 17:30 12/26/19 17:29 Acetaminophen (Tylenol) 650 mg Q4H PRN ORAL Temp >100.5 11/26/19 17:30 12/26/19 17:29 Albuterol Sulfate (Proventil MDI) 2 puff Q4H PRN INH Shortness of Breath 11/26/19 17:15 02/24/20 17:14 Bisacodyl (Dulcolax) 10 mg DAILYPRN PRN RECTAL Constipation 11/26/19 17:30 02/24/20 17:29 Ceftriaxone Sodium 1 gm/ Dextrose 50 ml @ 100 mls/hr Q24H IVPB 11/27/19 00:00 12/04/19 00:00 11/27/19 00:13 Dextrose (Dextrose 50%) 25 ml Q30M PRN IV Hypoglycemia 11/26/19 17:30 02/24/20 17:29 Dextrose (Dextrose 50%) 50 ml Q30M PRN IV Hypoglycemia 11/26/19 17:30 02/24/20 17:29 Diphenhydramine HCl (Benadryl) 25 mg Q6H PRN ORAL Itching/Pruritis 11/26/19 17:30 12/26/19 17:29 Docusate Sodium (Colace) 100 mg EVERY 12 HOURS ORAL 11/26/19 21:00 12/26/19 20:59 11/27/19 08:56 Enoxaparin Sodium (Lovenox) 40 mg Q24H SUBQ 11/26/19 21:00 02/24/20 20:59 Hydralazine HCl (Apresoline) 10 mg Q6H PRN ORAL sbp>160 11/26/19 17:30 02/24/20 17:29 Ipratropium Ursa (Atrovent Inh) 1 puffs Q12HR INH 11/26/19 21:00 12/26/19 20:59 11/27/19 08:57 Ipratropium Ursa (Atrovent Inh) 1 puffs Q6H PRN INH sob 11/26/19 17:45 12/26/19 17:44 Magnesium Hydroxide (Mom) 30 ml HSPRN PRN ORAL Constipation 11/26/19 17:30 12/26/19 17:29 Methylprednisolone Sodium Succinate (Solu-MEDROL) 40 mg Q8H IVP 11/27/19 09:00 02/25/20 08:59 11/27/19 16:41 Morphine Sulfate (Morphine Sulfate) 1 mg Q6H PRN IVP Severe Pain (Pain Scale 7-10) 11/26/19 17:30 12/03/19 17:29 Nitroglycerin (Ntg) 0.4 mg Q5M PRN SL Prn Chest Pain 11/26/19 17:30 12/26/19 17:29 Polyethylene Glycol (Miralax) 17 gm DAILYPRN PRN ORAL Constipation 11/26/19 17:30 12/26/19 17:29 Cody Bennett MD Nov 27, 2019 22:35
[2019-11-27] MEDS: Enoxaparin 40mg Inj SUBQ SCH (23:21)
[2019-11-28] VITALS (7 sets, daily range): BP systolic 132–156; BP diastolic 66–98
[2019-11-28] MEDS: Solu-MEDROL 40mg Inj IVP SCH ×2 (01:55→10:02)
--- NOTE | 2019-11-28 02:30 | Consultation ---
DATE OF CONSULTATION: 11/27/2019 INFECTIOUS DISEASE CONSULTATION CONSULTING PHYSICIAN: Cody Bennett MD. ATTENDING PHYSICIAN: Farzana Lucio MD. REFERRING PHYSICIAN: Zelda Garcia MD. REASON FOR CONSULTATION: Possible COVID-19 virus infection, upper respiratory infection, possible community-acquired pneumonia, possible gram-positive bacteremia. CHIEF COMPLAINT: Patient's chief complaint coming in to the hospital is COPD exacerbation. HISTORY OF PRESENT ILLNESS: This is a 74-year-old male who comes with shortness of breath and COPD exacerbation to [facility]. Infectious Disease consultation requested because of concern of COVID-19 virus infection. He is in isolation currently. COVID-19 virus PCR testing is pending. He has upper respiratory infection and COPD exacerbation. He is on steroids. I put him on Rocephin. Patient has gram-variable rods in the blood, likely contaminant. Await results. MAR was noted. Orders were reviewed. Notes and records were reviewed. REVIEW OF SYSTEMS: CONSTITUTIONAL: Main issue was shortness of breath. He has no fevers. Generalized fatigue. No focal weakness. CARDIAC: No chest pain. GASTROINTESTINAL: No nausea, vomiting, or diarrhea. GENITOURINARY: No dysuria or frequency. PULMONARY: He is short of breath and has cough. SKIN: No rash. PAST MEDICAL HISTORY: Patient has a past medical history of COPD. No history diabetes or hypertension. ALLERGIES: No known drug allergies. SOCIAL HISTORY: Positive smoking. No alcohol drug abuse. FAMILY HISTORY: Noncontributory. MEDICATIONS: Upon reviewing the MAR, he is on following medications. He is on methylprednisolone, Rocephin, enoxaparin, docusate, acetaminophen, morphine, bisacodyl, hydralazine, IV fluids, diphenhydramine. Outside medications noted and reconciliated. Antibiotics, Rocephin. PHYSICAL EXAMINATION: VITAL SIGNS: Temperature is 98.1, pulse 80, respiratory rate 20, blood pressure 145/75, saturation 98%. GENERAL: Alert, responsive, oriented x3. HEAD AND NECK: Oral exam, no thrush. Eye exam, no icterus. Normocephalic. Neck is supple. HEART: Regular. No gallop or murmur. ABDOMEN: Soft, nontender. LUNGS: Few bilateral rhonchi. No rales. SKIN: No rash. MUSCULOSKELETAL: No effusion. Legs are without cellulitis. PERIPHERAL VASCULAR: No cyanosis or gangrene. GENITOURINARY: He has no Sagastume. LINE SITES: Without phlebitis. NEUROLOGIC: Intact, nonfocal. LABORATORY DATA: White count 6.6, hemoglobin 13.1. Highest white count is 11.0, which is not significantly elevated. Creatinine 0.9. Blood cultures had 1 bottle of gram-variable rods, likely contaminant. COVID-19 virus infection testing is pending. Chest x-ray showed no acute disease, consistent with hyperinflation and COPD. ASSESSMENT AND PLAN: 1. Patient has likely COPD exacerbation, upper respiratory infection, rule out community-acquired pneumonia. Continue Rocephin. Check followup chest x-ray. Patient is being ruled out for COVID-19 virus infection with shortness of breath, history of COPD. Continue Rocephin. Check followup chest x-ray and laboratories. Await COVID-19 virus testing. Continue methylprednisolone per Pulmonary Medicine for COPD. 2. COPD. 3. No history of diabetes or hypertension. 4. No known allergies. 5. Social history positive for smoking. 6. Family history noncontributory. 7. MAR was noted. 8. Case discussed with RN. 9. Continue treatment per primary consultants. 10. Orders were noted and entered. In regards to the gram-variable rods in the blood is likely contaminant. We will recheck blood cultures. No need to add any other antibiotics. Continue Rocephin for now. Cody Bennett M.D. DR: PRETTY JOB#: [id number] CC:
--- NOTE | 2019-11-28 07:09 | NUR ---
HAND-OFF: Report given to Wayne Moe RN. Pt in stable condtion.
--- NOTE | 2019-11-28 07:45 | General Progress Note ---
Assessment/Plan Assessment/Plan: 74-year-old male with PMH of COPD who presents with shortness of breath for 7 days. In the ED, patient was shown to be in acute respiratory distress, was given magnesium, CXR consistent with COPD. Pt was admitted for further treatment and evaluation. #Acute COPD exacerbation #CAP #Lactic acidosis - resolved #Bacilis bacteremia -cont. in-pt medical care -lactic acidosis likely 2/2 to acute exacerbation of COPD, now resolved -COVID negative, d/c isolation/droplet precautions -CXR consistent w/COPD -Atrovent scheduled and PRN -steroids IV changed to PO -BCx w/GN bacilli, likely contaminant, repeat BCx pending -ID following: CTX -Pulm consulted, recs appreciated dispo: pending repeat bcx, likely d/c home tomorrow w/HH DVT PPX: lovenox Time spent on encounter: 36 mins, >50% on counseling, coordination of care. Discussed case w/ID and RN. Time of note doesn't reflect time of encounter. Subjective Allergies: Coded Allergies: No Known Allergies (Unverified , 11/26/19) Subjective F/u for COPD exacerbation/CAP. COVID negative. BCx 1 of 2 w/bacilli. Pt denies SOB, cough, f/c, CP at this time. States breathing has improved. 12 pt ROS neg except as above Objective Last 24 Hour Vital Signs Date Time Temp Pulse Resp B/P (MAP) Pulse Ox O2 Delivery O2 Flow Rate FiO2 11/28/19 04:00 2.0 11/28/19 04:00 72 11/28/19 03:59 98.0 73 20 147/75 (99) 98 11/28/19 00:00 71 11/28/19 00:00 97.6 71 19 151/74 (99) 98 11/28/19 00:00 2.0 11/27/19 21:00 Nasal Cannula 2.0 11/27/19 20:00 77 11/27/19 20:00 98.1 77 20 149/78 (101) 98 11/27/19 16:00 98.1 80 20 145/75 (98) 98 11/27/19 16:00 2.0 11/27/19 16:00 89 11/27/19 12:00 92 11/27/19 12:00 2.0 11/27/19 11:38 97.9 75 20 123/69 (87) 100 11/27/19 09:00 Nasal Cannula 2.0 11/27/19 08:00 2.0 11/27/19 08:00 86 11/27/19 08:00 98.1 87 20 116/64 (81) 99 Intake and Output 11/27/19 11/28/19 19:00 07:00 Intake Total 730 ml 300 ml Output Total 700 ml Balance 30 ml 300 ml Intake Oral 730 ml 300 ml Output Urine Total 700 ml # Voids 3 # Bowel Movements 1 Height (Feet): 6 Height (Inches): 1.00 Weight (Pounds): 135 Objective General: NAD, A&O x 3 HEENT: NCAT, EOMi, MMM CV: RRR, no murmurs, rubs, or gallops Pulm: Diminished breath sounds otherwise no wheezing/rales appreciated, no accessory muscle usage or conversational dyspnea GI: Soft, nontender, nondistended, bowel sounds present Ext: No lower extremity edema bilaterally Skin: no rashes lesions or ulcers Hodan Garcia M.D. Nov 28, 2019 07:45
[2019-11-28 09:01] LABS: HEMATOCRIT 42.2 % (42.0-52.0); MEAN CORPUSCULAR VOLUME 96 FL (80-99); PLATELET COUNT 262 K/UL (150-450); RED BLOOD COUNT 4.41 M/UL (4.70-6.10); RED CELL DISTRIBUTION WIDTH 12.8 % (11.6-14.8); WHITE BLOOD COUNT 15.9 K/UL (4.8-10.8)
[2019-11-28 09:19] LABS: ANION GAP 7 mmol/L (5-15); BLOOD UREA NITROGEN 16 mg/dL (7-18); CALCIUM 9.3 MG/DL (8.5-10.1); CARBON DIOXIDE 33 MMOL/L (21-32); CHLORIDE 104 MMOL/L (98-107); CREATININE 0.8 MG/DL (0.55-1.30); POTASSIUM 4.3 MMOL/L (3.5-5.1); SODIUM 143 MMOL/L (136-145)
[2019-11-28] MEDS: Docusate 100mg cap ORAL SCH ×2 (10:02→20:38)
--- NOTE | 2019-11-28 10:03 | NUR ---
CASE MANAGEMENT:REVIEW' 11/28/19 SI: COPD EXACERBATION. RESPIRATORY DISTRESS 97.7 69 20 140/68 99% ON 2L/NC WBC+15.9 CO2+33 IS: IV SOLUMEDROL Q8HRS IV ROCEPHIN Q24 LOVENOX SQ Q24 ATROVENT INH Q12 : TELEMETRY STATUS DCP: FROM HOME
[2019-11-28] MEDS: Ipratropium Bromide Inhaler INH SCH ×2 (10:04→21:00)
--- NOTE | 2019-11-28 10:22 | Pulmonology Progress Note ---
Assessment/Plan Assessment/Plan IMPRESSION: Exacerbation of COPD. DISCUSSION: Continue oxygen and pulmonary hygiene including breathing treatments. Continue steroids. I will follow carefully. Antibiotics per ID. Ihsan Lala M.D. Subjective Interval Events: COVID 19 pcr negative Constitutional: Reports: no symptoms HEENT: Repors: no symptoms Respiratory: Reports: no symptoms Cardiovascular: Reports: no symptoms Gastrointestinal/Abdominal: Reports: no symptoms, nausea, vomiting Allergies: Coded Allergies: No Known Allergies (Unverified , 11/26/19) Objective Last 24 Hour Vital Signs Date Time Temp Pulse Resp B/P (MAP) Pulse Ox O2 Delivery O2 Flow Rate FiO2 11/28/19 09:00 Nasal Cannula 2.0 Nasal Cannula 2.0 11/28/19 08:00 97.7 69 20 140/69 (92) 99 11/28/19 08:00 2.0 11/28/19 04:00 2.0 11/28/19 04:00 72 11/28/19 03:59 98.0 73 20 147/75 (99) 98 11/28/19 00:00 71 11/28/19 00:00 97.6 71 19 151/74 (99) 98 11/28/19 00:00 2.0 11/27/19 21:00 Nasal Cannula 2.0 11/27/19 20:00 77 11/27/19 20:00 98.1 77 20 149/78 (101) 98 11/27/19 16:00 98.1 80 20 145/75 (98) 98 11/27/19 16:00 2.0 11/27/19 16:00 89 11/27/19 12:00 92 11/27/19 12:00 2.0 11/27/19 11:38 97.9 75 20 123/69 (87) 100 Intake and Output 11/27/19 11/28/19 19:00 07:00 Intake Total 730 ml 300 ml Output Total 700 ml Balance 30 ml 300 ml Intake Oral 730 ml 300 ml Output Urine Total 700 ml # Voids 3 # Bowel Movements 1 General Appearance: no acute distress HEENT: normocephalic, atraumatic, anicteric Respiratory/Chest: chest wall non-tender, lungs clear Cardiovascular: normal peripheral pulses Abdomen: normal bowel sounds, soft, non tender, no organomegaly Extremities: no cyanosis Microbiology Date/Time Source Procedure Growth Status 11/26/19 15:50 Blood Blood Culture - Preliminary NO GROWTH AFTER 24 HOURS Resulted 11/26/19 15:35 Blood Blood Culture - Final Bacillus Sp Not B. Anthracis Complete 11/26/19 15:35 Nasopharynx Coronavirus COVID-19 PCR ([facility]) - Final Complete Laboratory Tests 11/28/19 08:10: White Blood Count 15.9#H, Red Blood Count 4.41L, Hemoglobin 14.0L, Hematocrit 42.2, Mean Corpuscular Volume 96, Mean Corpuscular Hemoglobin 31.8H, Mean Corpuscular Hemoglobin Concent 33.2, Red Cell Distribution Width 12.8, Platelet Count 262, Mean Platelet Volume 10.1, Neutrophils (%) (Auto) , Lymphocytes (%) ( Auto) , Monocytes (%) (Auto) , Eosinophils (%) (Auto) , Basophils (%) (Auto) , Neutrophils % (Manual) [Pending], Lymphocytes % (Manual) [Pending], Platelet Estimate [Pending], Platelet Morphology [Pending], Sodium Level 143, Potassium Level 4.3, Chloride Level 104, Carbon Dioxide Level 33H, Anion Gap 7, Blood Urea Nitrogen 16, Creatinine 0.8, Estimat Glomerular Filtration Rate > 60, Glucose Level 125H, Calcium Level 9.3 Current Medications Medications (Trade) Dose Ordered Sig/Duran Route PRN Reason Start Time Stop Time Status Last Admin Dose Admin Acetaminophen (Tylenol) 650 mg Q4H PRN ORAL Mild Pain (Pain Scale 1-3) 11/26/19 17:30 12/26/19 17:29 Acetaminophen (Tylenol) 650 mg Q4H PRN ORAL Temp >100.5 11/26/19 17:30 12/26/19 17:29 Albuterol Sulfate (Proventil MDI) 2 puff Q4H PRN INH Shortness of Breath 11/26/19 17:15 02/24/20 17:14 Bisacodyl (Dulcolax) 10 mg DAILYPRN PRN RECTAL Constipation 11/26/19 17:30 02/24/20 17:29 Ceftriaxone Sodium 1 gm/ Dextrose 50 ml @ 100 mls/hr Q24H IVPB 11/27/19 00:00 12/04/19 00:00 11/27/19 23:22 Dextrose (Dextrose 50%) 25 ml Q30M PRN IV Hypoglycemia 11/26/19 17:30 02/24/20 17:29 Dextrose (Dextrose 50%) 50 ml Q30M PRN IV Hypoglycemia 11/26/19 17:30 02/24/20 17:29 Diphenhydramine HCl (Benadryl) 25 mg Q6H PRN ORAL Itching/Pruritis 11/26/19 17:30 12/26/19 17:29 Docusate Sodium (Colace) 100 mg EVERY 12 HOURS ORAL 11/26/19 21:00 12/26/19 20:59 11/28/19 10:02 Enoxaparin Sodium (Lovenox) 40 mg Q24H SUBQ 11/26/19 21:00 02/24/20 20:59 11/27/19 23:21 Hydralazine HCl (Apresoline) 10 mg Q6H PRN ORAL sbp>160 11/26/19 17:30 02/24/20 17:29 Ipratropium Swan (Atrovent Inh) 1 puffs Q12HR INH 11/26/19 21:00 12/26/19 20:59 11/28/19 10:04 Ipratropium Swan (Atrovent Inh) 1 puffs Q6H PRN INH sob 11/26/19 17:45 12/26/19 17:44 Magnesium Hydroxide (Mom) 30 ml HSPRN PRN ORAL Constipation 11/26/19 17:30 12/26/19 17:29 Methylprednisolone Sodium Succinate (Solu-MEDROL) 40 mg Q8H IVP 11/27/19 09:00 02/25/20 08:59 11/28/19 10:02 Morphine Sulfate (Morphine Sulfate) 1 mg Q6H PRN IVP Severe Pain (Pain Scale 7-10) 11/26/19 17:30 12/03/19 17:29 Nitroglycerin (Ntg) 0.4 mg Q5M PRN SL Prn Chest Pain 11/26/19 17:30 12/26/19 17:29 Polyethylene Glycol (Miralax) 17 gm DAILYPRN PRN ORAL Constipation 11/26/19 17:30 12/26/19 17:29 Ihsan Lala MD Nov 28, 2019 10:22
--- NOTE | 2019-11-28 11:51 | Diagnostic Imaging Report ---
Indication: Cough, chest pain Technique: XRAY Chest 1v Comparison: 11/26/2019 Findings: The ventilation with flattening of the diaphragms compatible with COPD again noted. No focal airspace consolidation is identified. No radiographically appreciable pleural effusion or pneumothorax. No evidence to suggest pulmonary edema. There are healed rib fractures. Mild scoliosis is noted. Heart size and mediastinal contours are stable. Atherosclerotic vascular calcifications again noted. Interposition of portions of the transverse colon underneath the left hemidiaphragm again noted. Impression: No significant interval change compared to the prior exam. COPD changes. No focal airspace consolidation.
--- NOTE | 2019-11-28 14:17 | NUR ---
RADIOLOGY DEPT., CHEST X-RAY DONE.-P.DYE
--- NOTE | 2019-11-28 14:20 | NUR ---
NURSE NOTES: Patient arrived on unit. AOx4 Stable. Denies pain or SOB. Patient's skin is c/d/i. Patient oriented to room, call light, and unit. patient instructed to use call light for assistance, verbalized understanding. Patient is in bed in locked and lowest position with call light within reach. All safety measures provided. WIll continue to monitor.
[2019-11-28] MEDS ORDERED: Miralax 17gm pkt ORAL PRN (15:00)
[2019-11-28] MEDS ORDERED: HydrALAZINE 10mg Tab ORAL PRN (15:00)
[2019-11-28] MEDS ORDERED: Ipratropium Bromide Inhaler INH PRN (15:00)
[2019-11-28] MEDS ORDERED: Morphine Sulfate 2mg/ml Inj(IV/IM USE ONLY) IVP PRN (15:00)
[2019-11-28] MEDS ORDERED: Albuterol 90mcg Inhaler 8gm INH PRN (15:00)
[2019-11-28] MEDS ORDERED: DiphenhydrAMINE 25mg Tab ORAL PRN (15:00)
[2019-11-28] MEDS ORDERED: Nitroglycerin Subl 0.4mg tab SL PRN (15:00)
--- NOTE | 2019-11-28 15:16 | NUR ---
DISCHARGE PLANNING PATIENT IS FROM HOME AND COVID 19 NEGATIVE DISCHARGE PLAN DISCUSSED WITH DR CASTANON THIS MORNING PER PATIENT NOT READY FOR DISCHARGE BUT READY FOR LOWER LEVEL OF CARE DOWNGRADE TO MED/SURG Addendum: 11/28/19 at 1618 by KAILASH BOJORQUEZ LVN LVN FAXED CLINICALS TO [facility] T: [phone] F: [phone]
--- NOTE | 2019-11-28 19:12 | NUR ---
HAND-OFF: Report given to Amador BLOOM. Patient is stable.
--- NOTE | 2019-11-28 19:17 | NUR ---
NURSE NOTES: Pt. received from MERLE Wilcox. Pt. AAOx4, on room air, out of bed in chair watching television. Breathing is even and unlabored, no complaints of pain at this time. IV left hand 20 g noted, saline locked. Bed is low and locked, side rails x2 up, and call light is in reach. Will continue to monitor.
[2019-11-28] MEDS ORDERED: Enoxaparin 40mg Inj SUBQ SCH (21:00)
[2019-11-28] MEDS ORDERED: Milk of Magnesia 30ml Ud ORAL PRN (21:00)
[2019-11-29] VITALS: BP 144/72
[2019-11-29] MEDS ORDERED: cefTRIAXone 1 GM in D5W 50 ML IVPB SCH ×2
[2019-11-29 04:00] VITALS: BP 164/78
[2019-11-29 04:45] VITALS: BP 144/73
[2019-11-29 06:54] LABS: ANION GAP 3 mmol/L (5-15); BLOOD UREA NITROGEN 18 mg/dL (7-18); CALCIUM 8.2 MG/DL (8.5-10.1); CARBON DIOXIDE 34 MMOL/L (21-32); CHLORIDE 106 MMOL/L (98-107); CREATININE 0.7 MG/DL (0.55-1.30); POTASSIUM 4.1 MMOL/L (3.5-5.1); SODIUM 143 MMOL/L (136-145)
[2019-11-29 07:16] LABS: BASOPHILS % (AUTO) 1.2 % (0.0-2.0); EOSINOPHILS % (AUTO) 0.3 % (0.0-3.0); HEMATOCRIT 37.3 % (42.0-52.0); HEMOGLOBIN 12.7 G/DL (14.2-18.0); LYMPHOCYTES % (AUTO) 30.8 % (20.0-45.0); MEAN CORPUSCULAR VOLUME 94 FL (80-99); MONOCYTES % (AUTO) 10.8 % (1.0-10.0); NEUTROPHILS % (AUTO) 56.9 % (45.0-75.0); PLATELET COUNT 216 K/UL (150-450); RED BLOOD COUNT 3.95 M/UL (4.70-6.10); RED CELL DISTRIBUTION WIDTH 12.8 % (11.6-14.8); WHITE BLOOD COUNT 11.9 K/UL (4.8-10.8)
--- NOTE | 2019-11-29 07:30 | NUR ---
NURSE NOTES: Patient is in bed asleep. Stable. no visible signs of distress noted. Patient is in bed in locked and lowest position with call light within reach. All safety measures provided. Will continue to monitor.
--- NOTE | 2019-11-29 07:31 | Discharge Summary ---
Discharge Summary Hospital Course Date of Admission Nov 26, 2019 at 16:18 Date of Discharge Admitting Diagnosis copd exacerbation HPI Varun Oliva is a 74 year old male who was admitted on Nov 26, 2019 at 16 :18 for Chronic Obstructive Pulmonary Disease Exacerbation Hospital Course 74-year-old male with PMH of COPD who presents with shortness of breath for 7 days. In the ED, patient was shown to be in acute respiratory distress, was given magnesium, CXR consistent with COPD. Pt was admitted for further treatment and evaluation. COVID was negative. Pt improved with atrovent and steroids. BCx w/GN bacilli, likely contaminant, repeat BCx negative x2. Pt noted to have BP elevated, started on amlodipine. ID and pulm on board, stated pt stable for d/c home w/home health. Pt to be d/c home w/ Medrol Dosepak, Levaquin 750 mg PO q daily x3 days, and amlodipine 5 mg PO daily. Pt instructed to f/u w/PCP as o/p. #Acute COPD exacerbation #CAP #Lactic acidosis - resolved D/c planning >30 mins. Discharge Medications New Medications: Levofloxacin* (Levaquin*) 750 Mg Tablet 750 MG ORAL DAILY for 3 Days, #3 TAB Methylprednisolone (Methylprednisolone*) 4MG Dspk 4 MG ORAL DIRECTED for 6 Days, #21 EA 0 Refills Day 1: Two tablets before breakfast, one after lunch, one after dinner, and two at bedtime. If started late in the day, take all six tablets at once or divide into two or three doses, unless otherwise directed by prescriber. Day 2: One tablet before breakfast, one after lunch, one after dinner, and two at bedtime Day 3: One tablet before breakfast, one after lunch, one after dinner, and one at bedtime Day 4: One tablet before breakfast, one after lunch, and one at bedtime Day 5: One tablet before breakfast and one at bedtime Day 6: One tablet before breakfast Amlodipine Besylate (Norvasc) 5 Mg Tablet 5 MG ORAL DAILY for 30 Days, #30 TAB 1 Refill Continued Medications: Ipratropium/Albuterol Sulfate (Combivent Respimat Inhal [place]) 4 Gm Mist.inhal 4 GM IH for , GM (This prescription has been renewed) Tramadol Hcl* (Ultram*) 50 Mg Tablet 50 MG ORAL Q6H PRN for For Pain, #12 TAB 0 Refills (This prescription has been renewed) Discharge Condition Upon Discharge: stable Discharge Vital Signs Last Vital Signs Date Time Temp Pulse Resp B/P (MAP) Pulse Ox O2 Delivery O2 Flow Rate FiO2 11/29/19 04:45 144/73 (96) 11/29/19 04:00 97.2 61 18 97 11/28/19 21:00 Nasal Cannula 2.0 Nasal Cannula 2.0 Discharge Disposition Patient was discharged to home w/home health. Hodan Garcia M.D. Nov 29, 2019 07:31
--- NOTE | 2019-11-29 07:35 | NUR ---
HAND-OFF: Report given to MERLE Wilcox.
[2019-11-29] MEDS ORDERED: MEDROL DOSEPAK4 MG ORAL (07:50)
[2019-11-29] MEDS ORDERED: LEVAQUIN750 MG ORAL (07:50)
[2019-11-29] MEDS ORDERED: NORVASC5 MG ORAL (07:54)
[2019-11-29 08:00] VITALS: BP 163/77
[2019-11-29] MEDS: Docusate 100mg cap ORAL SCH (08:31)
[2019-11-29] MEDS: Ipratropium Bromide Inhaler INH SCH (09:00)
[2019-11-29 12:00] VITALS: BP 147/98
--- NOTE | 2019-11-29 12:10 | Pulmonology Progress Note ---
Assessment/Plan Assessment/Plan IMPRESSION: Exacerbation of COPD. DISCUSSION: Continue pulmonary hygiene including breathing treatments. Continue steroids. OK to switch to PO steroid taper DC planning November dc O2 Ihsan Lala M.D. Subjective Interval Events: COVID 19 pcr negative Constitutional: Reports: no symptoms HEENT: Repors: no symptoms Respiratory: Reports: no symptoms Cardiovascular: Reports: no symptoms Gastrointestinal/Abdominal: Reports: no symptoms, nausea, vomiting Allergies: Coded Allergies: No Known Allergies (Unverified , 11/26/19) Objective Last 24 Hour Vital Signs Date Time Temp Pulse Resp B/P (MAP) Pulse Ox O2 Delivery O2 Flow Rate FiO2 11/29/19 09:00 Nasal Cannula 2.0 Nasal Cannula 2.0 11/29/19 08:31 83 163/77 11/29/19 08:00 97.8 83 20 163/77 (105) 98 11/29/19 04:45 144/73 (96) 11/29/19 04:00 97.2 61 18 164/78 (106) 97 11/29/19 03:46 164/78 11/29/19 00:00 97.3 67 16 144/72 (96) 99 11/28/19 21:00 Nasal Cannula 2.0 Nasal Cannula 2.0 11/28/19 20:00 97.3 93 16 156/73 (100) 93 11/28/19 16:00 97.2 75 20 144/72 (96) 98 11/28/19 14:20 98.1 101 16 135/98 (110) 95 Intake and Output 11/28/19 11/29/19 19:00 07:00 Intake Total 480 ml 350 ml Output Total 1200 ml Balance -720 ml 350 ml Intake Oral 480 ml 300 ml IV Total 50 ml Output Urine Total 1200 ml # Voids 1 General Appearance: no acute distress HEENT: normocephalic, atraumatic, anicteric Respiratory/Chest: chest wall non-tender, lungs clear Cardiovascular: normal peripheral pulses Abdomen: normal bowel sounds, soft, non tender, no organomegaly Extremities: no cyanosis Microbiology Date/Time Source Procedure Growth Status 11/26/19 15:50 Blood Blood Culture - Preliminary NO GROWTH AFTER 48 HOURS Resulted 11/26/19 15:35 Blood Blood Culture - Final Bacillus Sp Not B. Anthracis Complete 11/26/19 15:35 Nasopharynx Coronavirus COVID-19 PCR ([facility]) - Final Complete Laboratory Tests 11/29/19 05:40: White Blood Count 11.9H, Red Blood Count 3.95L, Hemoglobin 12.7L, Hematocrit 37.3L, Mean Corpuscular Volume 94, Mean Corpuscular Hemoglobin 32.1H, Mean Corpuscular Hemoglobin Concent 34.0, Red Cell Distribution Width 12.8, Platelet Count 216, Mean Platelet Volume 9.9, Neutrophils (%) (Auto) 56.9, Lymphocytes (% ) (Auto) 30.8, Monocytes (%) (Auto) 10.8H, Eosinophils (%) (Auto) 0.3, Basophils (%) (Auto) 1.2, Sodium Level 143, Potassium Level 4.1, Chloride Level 106, Carbon Dioxide Level 34H, Anion Gap 3L, Blood Urea Nitrogen 18, Creatinine 0.7, Estimat Glomerular Filtration Rate > 60, Glucose Level 80, Calcium Level 8.2L Current Medications Medications (Trade) Dose Ordered Sig/Duran Route PRN Reason Start Time Stop Time Status Last Admin Dose Admin Acetaminophen (Tylenol) 650 mg Q4H PRN ORAL Mild Pain (Pain Scale 1-3) 11/28/19 15:00 12/26/19 14:59 Acetaminophen (Tylenol) 650 mg Q4H PRN ORAL Temp >100.5 11/28/19 15:00 12/26/19 14:59 Albuterol Sulfate (Proventil MDI) 2 puff Q4H PRN INH Shortness of Breath 11/28/19 15:00 02/24/20 14:59 Amlodipine Besylate (Norvasc) 5 mg DAILY ORAL 11/29/19 09:00 12/29/19 08:59 11/29/19 08:31 Bisacodyl (Dulcolax) 10 mg DAILYPRN PRN RECTAL Constipation 11/28/19 15:00 02/24/20 14:59 Ceftriaxone Sodium 1 gm/ Dextrose 50 ml @ 100 mls/hr Q24H IVPB 11/29/19 00:00 12/04/19 00:00 11/29/19 00:17 Dextrose (Dextrose 50%) 25 ml Q30M PRN IV Hypoglycemia 11/28/19 15:00 02/24/20 14:59 Dextrose (Dextrose 50%) 50 ml Q30M PRN IV Hypoglycemia 11/28/19 15:00 02/24/20 14:59 Diphenhydramine HCl (Benadryl) 25 mg Q6H PRN ORAL Itching/Pruritis 11/28/19 15:00 12/26/19 14:59 Docusate Sodium (Colace) 100 mg EVERY 12 HOURS ORAL 11/28/19 21:00 12/26/19 20:59 11/29/19 08:31 Enoxaparin Sodium (Lovenox) 40 mg Q24H SUBQ 11/28/19 21:00 02/24/20 20:59 11/28/19 20:41 Hydralazine HCl (Apresoline) 10 mg Q6H PRN ORAL sbp>160 mmHg 11/28/19 15:00 02/24/20 14:59 11/29/19 03:46 Ipratropium [place] (Atrovent Inh) 1 puffs Q12HR INH 11/28/19 21:00 12/26/19 20:59 Ipratropium [place] (Atrovent Inh) 1 puffs Q6H PRN INH Shortness of Breath 11/28/19 15:00 12/26/19 14:59 Magnesium Hydroxide (Mom) 30 ml HSPRN PRN ORAL Constipation 11/28/19 21:00 12/26/19 20:59 Morphine Sulfate (Morphine Sulfate) 1 mg Q6H PRN IVP Severe Pain (Pain Scale 7-10) 11/28/19 15:00 12/03/19 14:59 Nitroglycerin (Ntg) 0.4 mg Q5M PRN SL Prn Chest Pain 11/28/19 15:00 12/26/19 14:59 Polyethylene Glycol (Miralax) 17 gm DAILYPRN PRN ORAL Constipation 11/28/19 15:00 12/26/19 14:59 Prednisone (predniSONE) 40 mg DAILY ORAL 11/29/19 09:00 12/29/19 08:59 11/29/19 08:31 Ihsan Lala MD Nov 29, 2019 12:10
--- NOTE | 2019-11-29 14:21 | NUR ---
NURSE NOTES: Patient discharged home as ordered. Stable. Denies pain or SOB. Patient was given thorough discharge instructions, verbalized understanding. Patient has all belongings. No IV access. Patient has all medications, medication instructions given to patient by Dr. Garcia in am. Patient assisted into taxi via wheelchair without incident. Skin is c/d/i.
== END 2019-11-29 14:23 | disposition home health service (06) | DRG 140 ==
LOC: EDBD 15:26 → EMR 15:38 → 2E 16:18 → EDBEDREQ 20:29 → 3E 11-28 14:08
DX: J44.0 Chronic obstructive pulmonary disease with (acute) lower respiratory infection (principal); J44.1 Chronic obstructive pulmonary disease with (acute) exacerbation; J18.9 Pneumonia, unspecified organism; E87.2 Acidosis; F17.200 Nicotine dependence, unspecified, uncomplicated
CPT/HCPCS: 36415; 36600; 71045; 80048; 80053; 82550; 82553; 82803; 83605; 83690; 83880; 84484; 85007; 85025; 87040; 87635; 93005; 96365; 96366; 96375; 99285; J7030